=== PATIENT | female | born 2000 | race Two or more races ===

== ENCOUNTER 2024-03-31 01:27 | Emergency (ER) | payer OTHER ==
[2024-03-31 01:39] VITALS: BP 112/70; PULSE 89; RESP 18; TEMP 98.4; BMI 36.0
[2024-03-31] MEDS ORDERED: TETRACAINE 0.5% OPHTH SOLN 2 ML BOTTLE ONE (01:56)
[2024-03-31] MEDS ORDERED: FLUORESCEIN NA 1 EA STRIP ONE (01:56)
[2024-03-31] MEDS: FLUORESCEIN NA 1 EA STRIP OU ONE (02:10)
[2024-03-31] MEDS: TETRACAINE 0.5% HCL 0.6ML DROPPER.BOTTLE OU ONE (02:10)
== END 2024-03-31 05:47 | disposition short-term general hospital (02) ==
LOC: JER 01:27
DX: H57.12 Ocular pain, left eye (principal); R51.9 Headache, unspecified
CPT/HCPCS: 70450-TC; 70480-TC; 99285-25